=== PATIENT | female | born 1985 | race Two or more races ===

== ENCOUNTER 2023-12-30 11:38 | Emergency (ER) | payer MEDICAID, SELFPAY ==
[2023-12-30 12:06] VITALS: BP 180/83; PULSE 118; RESP 19; TEMP 36.7; O2SAT 100; BMI 33.9
--- NOTE | 2023-12-30 12:20 | XR_ITS ---
Examination: PA lateral chest 2 views TECHNIQUE: Upright PA lateral chest 2 views Exam date and time: December 30, 2023 1248 hours Comparison July 27, 2020 INDICATIONS: Coughing dizziness today. FINDINGS: Normal heart size No pneumonia or pulmonary edema. Intact osseous structures IMPRESSION: No pneumonia or pulmonary edema
--- NOTE | 2023-12-30 12:21 | PD.EDRME ---
Rapid Medical Screening Exam RME Arrival date/time: 12/30/23 11:38 38-year-old female presents to the emergency department stating she has been not feeling well for the last few days Chief Complaint: General Adult/Misc Complain Time Seen by Provider: 12/30/23 11:42 Vital signs: Vital Signs Temperature 98.0 F 12/30/23 12:06 Pulse Rate 118 H 12/30/23 12:06 Respiratory Rate 19 12/30/23 12:06 Blood Pressure 180/83 H 12/30/23 12:06 Pulse Oximetry (%) 100 12/30/23 12:06 Oxygen Delivery Method Room Air 12/30/23 12:06
[2023-12-30 12:59] LABS: Collection Type, Urine Clean Catch; RBC,Urine 0 /hpf (0-3)
[2023-12-30 13:04] LABS: HCG Qualitative,Urine Negative
[2023-12-30 13:12] LABS: Basophils % (Auto) 0 % (0-2.5); Eosinophils # (Auto) 0.1 Thou/mm3 (0.0-0.5); Eosinophils % (Auto) 1 % (0-10); Hematocrit 43.9 % (36.0-46.0); Hemoglobin 14.8 g/dL (12.0-16.0); Immature Granulocytes % (Auto) 0 % (0-0); Immature Granulocytes Auto 0.02 Thou/mm3 (0.00-0.00); Lymphocytes # (Auto) 1.6 Thou/mm3 (1.0-4.8); Lymphocytes % (Auto) 16 % (10-50); Mean Corpuscular HGB Conc 33.7 g/dl (31.0-37.0); Mean Corpuscular Hemoglobin 28.1 pg (25.0-35.0); Mean Corpuscular Volume 83 fL (80-100); Monocytes # (Auto) 0.4 Thou/mm3 (0.0-0.8); Monocytes % (Auto) 4 % (0-12); Neutrophils # (Auto) 7.8 Thou/mm3 (1.8-7.7); Neutrophils % (Auto) 79 % (37-80); Nucleated Red Blood Cell % 0 /100 WBC (0); Platelet Count 425 Thou/mm3 (140-440); RDW Standard Deviation 38.6 fL (36.4-46.3); Red Blood Count 5.27 Miln/mm3 (4.00-5.20); White Blood Count 9.9 Thou/mm3 (3.6-11.0)
[2023-12-30 13:17] LABS: Amphetamine/Methamp Scrn,U Positive (Negative); Barbiturate Screen,Urine Negative (Negative); Benzodiazepines Screen,Urine Negative (Negative); Benzoylecgonine Screen, Ur Negative (Negative); Fentanyl Screen,Urine Negative (Negative); Opiate Screen,Urine Negative (Negative); THC Screen,Urine Negative (Negative)
[2023-12-30 13:21] LABS: Bilirubin,Urine Negative (Negative); Blood,Urine Negative (Negative); Clarity,Urine Clear (Clear/Hazy); Color,Urine Lt-Yellow (Lt Yel-Yel); Culture Indicated,Urine Not Indicated; Glucose, Urine Negative (Negative); Ketones,Urine Negative (Negative); Leukocyte Esterase,Urine Negative (Negative); Nitrite,Urine Negative (Negative); PH,Urine 6.5 (5.0-7.0); Protein,Urine Negative (Neg - Trace); Specific Gravity,Urine 1.015 (1.001-1.035); Squamous Epithelial Cell,Urine 3 /hpf (0-5); Urobilinogen,Urine Negative mg/dL (0.0-1.0); WBC,Urine < 1 /hpf (0-5)
[2023-12-30 13:25] LABS: Alanine Aminotransferase 19 U/L (10-49); Albumin/Globulin Ratio 1.7 (1.2-2.2); Alkaline Phosphatase 84 U/L (46-116); Anion Gap 9 (7-16); Aspartate Amino Transferase 23 U/L (0-34); BUN/Creatinine Ratio 16 Ratio (12-20); Bilirubin,Total 0.5 mg/dL (0.3-1.2); Blood Urea Nitrogen 11 mg/dL (9-23); Calcium 9.7 mg/dL (8.3-10.6); Calcium (Corrected) 9.7 mg/dL (8.5-10.1); Carbon Dioxide 25.2 mMol/L (20.0-31.0); Chloride 102 mMol/L (98-107); Creatinine (Component) 0.7 mg/dL (0.6-1.3); Estimated Creatinine Clearance 96.1 mL/min (>60); Globulin 2.9 gm/dL (2.3-3.5); Glucose 111 mg/dL (74-106); Lipase 42 U/L (12-53); Osmolality,Calculated 272 (275-295); Potassium 4.2 mMol/L (3.4-5.1); Sodium 136 mMol/L (136-145); Total Protein 7.9 gm/dL (5.7-8.2); Troponin I < 0.020 ng/mL (0.0-0.045); eGFR > 60 See Note
--- NOTE | 2023-12-30 14:33 | EDNOTE_ITS ---
ED General RME/HPI General Chief complaint: General Adult/Misc Complain Stated complaint: not feeling well. feels like bp is high Time Seen by Provider: 12/30/23 11:42 Arrival date/time: 12/30/23 11:38 Limitations: no limitations RME / HPI RME / HPI narrative: 12/30/23 11:38 38-year-old female presents to the emergency department stating she has been not feeling well for the last few days 38-year-old female with past medical history of hypertension presents to the ED for evaluation of fatigue and feeling ill x 3 days. She endorses intermittent dizziness and headache since onset of symptoms. She reports that she did not take her hypertension medication this morning at the advice of her [id number]. She denies chest pain, abdominal pain, shortness of breath, cough, visual changes, weakness, numbness. She endorses methamphetamine use prior to arrival to the ED. Endorses known sick contact at home and states that her had similar symptoms several days ago. Onset (ago): day(s) Radiation: non-radiation Consistency: intermittent Relieving factors: none Exacerbating factors: none Associated symptoms: denies other symptoms and headaches Treatments prior to arrival: none Related Data Previous Rx's ?Medication ?Instructions ?Recorded pseudoephedrine HCl 30 mg/5 mL 60 mg (10 mL) PO Q6H PRN sinus 05/03/18 oral liquid (Nasal Decongestant symptoms #118 mL (pseudoephedrine)) loratadine 10 mg tablet 10 mg PO QDAY #30 tabs 04/15/19 ciprofloxacin HCl 500 mg tablet 500 mg PO Q12H #20 tabs 07/28/19 (Cipro) clindamycin HCl 150 mg capsule 450 mg (3 x 150 mg) PO TID #30 caps 11/16/19 ibuprofen 800 mg tablet 800 mg PO TID PRN pain #30 tabs 11/16/19 acetaminophen 500 mg tablet 1,000 mg (2 x 500 mg) PO Q6H PRN 02/16/23 (Tylenol Extra Strength) fever or pain #30 tabs ibuprofen 600 mg tablet 600 mg PO Q6H PRN fever or pain 02/16/23 #30 tabs ondansetron 4 mg disintegrating 4 mg PO Q6H PRN nausea and 02/16/23 tablet vomiting #10 tabs ibuprofen 600 mg tablet 600 mg PO Q8H PRN pain #20 tabs 12/17/23 Allergies Allergy/AdvReac Type Severity Reaction Status Date / Time No Known Allergies Allergy Verified 12/30/23 11:39 Review of Systems Constitutional Constitutional: Denies chills, Denies fever(s), Reports headache(s) and Denies weakness Eyes Eyes: Denies blurry vision and Denies change in vision ENT Ears, Nose, Mouth, and Throat: Reports headache(s), Denies neck pain, Denies sore throat and Denies vertigo Cardiovascular Cardiovascular: Denies chest pain, Denies diaphoresis and Denies dyspnea Respiratory Respiratory: Denies dyspnea and Denies hemoptysis Gastrointestinal Gastrointestinal: Denies change in bowel habits, Denies nausea and Denies vomiting Genitourinary Genitourinary: Denies dysuria Musculoskeletal Musculoskeletal: Denies neck pain, Denies numbness, Denies stiffness and Denies tingling Integumentary/Breasts Skin/Breast: Denies rash and Denies wounds Neurologic Neurologic: Reports headache(s), Denies numbness, Denies tingling, Denies vertigo and Denies weakness Past Medical History Past Medical History CARDIAC: Positive Hypercholesterolemia and Hypertension; Negative Congestive Heart Failure RESPIRATORY: Negative Chronic Obstructive Pulmonary Disease (COPD) GENITOURINARY: Negative Renal Disease ENDOCRINE: Negative Diabetes Mellitus Type 1 or Diabetes Mellitus Type 2 PSYCHO/SOCIAL: Positive Anxiety Surgical History SURGICAL: Positive Abdominal Surgery and Tubal Ligation Social History SMOKING STATUS: Never smoker SUBSTANCE USE: does not use ED Exam General Limitations: Present no limitations General appearance: Present alert and in no apparent distress Head Head exam: Present atraumatic and normocephalic Eye Eye exam: Present PERRL and EOMI ENT ENT exam: Present mucous membranes moist and normal external ear exam Neck Neck exam: Present normal inspection and full ROM Chest Chest inspection: Present normal inspection and symmetric chest wall rise Respiratory Respiratory exam: Absent respiratory distress Cardiovascular Cardiovascular exam: Present regular rate, +S1 and +S2 Abdominal Exam Abdominal exam: Present soft; Absent distention Extremities Exam Extremities exam: Present normal inspection and full ROM Back Exam Back exam: Present normal inspection and full ROM Neurological Exam Neurological exam: Present alert and normal gait Psychiatric Psychiatric exam: Present normal affect Skin Skin exam: Present warm, dry and normal color Course Quality Measures none Orders Category Date Time Status XR chest 2V Stat Exams 12/30/23 12:20 Completed CBC Stat Lab 12/30/23 12:54 Completed Comprehensive Metabolic Panel Stat Lab 12/30/23 12:54 Completed Drug Screen,Urine Stat Lab 12/30/23 12:49 Completed HCG Qualitative,Urine Stat Lab 12/30/23 12:49 Completed Lipase Stat Lab 12/30/23 12:54 Completed Troponin I Stat Lab 12/30/23 12:54 Completed UA, C/S IF [Urinalysis, C/S if Indicated] Stat Lab 12/30/23 12:49 Completed Vital Signs Vital signs: Vital Signs Temperature 98.0 F 12/30/23 12:06 Pulse Rate 118 H 12/30/23 12:06 Respiratory Rate 19 12/30/23 12:06 Blood Pressure 180/83 H 12/30/23 12:06 Pulse Oximetry (%) 100 12/30/23 12:06 Oxygen Delivery Method Room Air 12/30/23 12:06 Pulse ox 100% on room air, within normal limits [facility] Patient data External records reviewed:: [facility] previous records Clinical information provided by:: patient Social determinants that could affect healthcare access:: substance use Patient has the following chronic illnesses:: Substance misuse, hypertension. How is presenting disease/condition affected by chronic disease/condition?: c aused by Evaluation data The following diagnostics were reviewed and interpreted by me:: lab results, radiology exam(s) and EKG tracing(s) Lab and/or radiology exams considered but not ordered:: Workup ordered. Interpretation Summary: Methamphetamine on drug tox, mild hyperglycemia on metabolic panel. No anemia, troponin negative. Medications Medications considered but not ordered:: Considered not ordered. Medication administrations:: Considered not ordered. Consultations Consultation(s) initiated? (list below): No Diagnosis Differential Diagnosis ED Complaint MDM: Viral illness, ACS, sepsis, hypertensive emergency, methamphetamine use. Most likely diagnosis given after review of the tests above:: Methamphetamine use, viral illness. Admission Indicated Admission indicated?: not indicated Explain why admission is indicated or not indicated:: Patient symptoms improved upon reevaluation. Hypertension likely due to missed medication, which we advised the patient to take her medication as prescribed. Tachycardia likely related to methamphetamine use. Patient nontoxic-appearing and stable at time of discharge. Admission Request Was there a request for admission?: No Disposition Plan Disposition Plan: Discharge Discharge Attestation Discharge Attestation: The patient and all family members were given an opportunity to ask questions and understood the discharge instructions. Discharge instructions specifically effects, indications for sooner follow up or return to the emergency department, and the expected course of current diagnosis. Patient condition: Stable Medical Decision Making MDM Narrative MDM Narrative: 38-year-old female with hypertension presented with generalized feeling of illness. Patient tachycardic and hypertensive in the department. Patient endorsed not taking her hypertension medication today, which I stressed that she needs to continue to take as prescribed. ACS workup today was fortunately negative with no gross electrolyte abnormalities or evidence of endorgan damage. Patient not anemic. Tachycardia likely related to methamphetamine use. Upon reevaluation patient reported that her symptoms were improved. I stressed that she needs to continue to take her hypertension medication as prescribed and follow-up with primary care within a week. I told her to return to the ED should her symptoms worsen or change. Patient was agreeable with this plan and stable at time of discharge Differential Diagnosis Differential Diagnosis: Viral illness, ACS, sepsis, hypertensive emergency, methamphetamine use. Lab Data 12/30/23 12:54 12/30/23 12:54 Labs: Lab Results 12/30/23 12/30/23 Range/Units 12:49 12:54 WBC 9.9 (3.6-11.0) Thou/mm3 RBC 5.27 H (4.00-5.20) Miln/mm3 Hgb 14.8 (12.0-16.0) g/dL Hct 43.9 (36.0-46.0) % MCV 83 (80-100) fL MCH 28.1 (25.0-35.0) pg MCHC 33.7 (31.0-37.0) g/dl RDW Std Deviation 38.6 (36.4-46.3) fL Plt Count 425 (140-440) Thou/mm3 Neut % (Auto) 79 (37-80) % Lymph % (Auto) 16 (10-50) % [place] % (Auto) 4 (0-12) % Eos % (Auto) 1 (0-10) % Baso % (Auto) 0 (0-2.5) % Neut # (Auto) 7.8 H (1.8-7.7) Thou/mm3 Lymph # (Auto) 1.6 (1.0-4.8) Thou/mm3 [place] # (Auto) 0.4 (0.0-0.8) Thou/mm3 Eos # (Auto) 0.1 (0.0-0.5) Thou/mm3 Baso # (Auto) 0.0 (0.0-0.2) Thou/mm3 Immature Gran # (Auto) 0.02 H (0.00-0.00) Thou/mm3 Absolute Nucleated RBC 0.00 (0.00-0.00) Thou/mm3 Immature Gran % 0 (0-0) % Nucleated RBC % 0 (0) /100 WBC Sodium 136 (136-145) mMol/L Potassium 4.2 (3.4-5.1) mMol/L Chloride 102 (98-107) mMol/L Carbon Dioxide 25.2 (20.0-31.0) mMol/L Anion Gap 9 (7-16) BUN 11 (9-23) mg/dL Creatinine 0.7 (0.6-1.3) mg/dL Estim Creat Clear Calc 96.1 (>60) mL/min eGFR > 60 (60 - ) See Note BUN/Creatinine Ratio 16 (12-20) Ratio Glucose 111 H (74-106) mg/dL Calculated Osmolality 272 L (275-295) Calcium 9.7 (8.3-10.6) mg/dL Corrected Calcium 9.7 (8.5-10.1) mg/dL Total Bilirubin 0.5 (0.3-1.2) mg/dL AST 23 (0-34) U/L ALT 19 (10-49) U/L Alkaline Phosphatase 84 (46-116) U/L Troponin I < 0.020 (0.0-0.045) ng/mL Total Protein 7.9 (5.7-8.2) gm/dL Albumin 5.0 (3.5-5.0) gm/dL Globulin 2.9 (2.3-3.5) gm/dL Albumin/Globulin Ratio 1.7 (1.2-2.2) Lipase 42 (12-53) U/L Ur Collection Type Clean Catch Urine Color Lt-Yellow (Lt Yel-Yel) Urine Clarity Clear (Clear/Hazy) Urine pH 6.5 (5.0-7.0) Ur Specific [place] 1.015 (1.001-1.035) Urine Protein Negative (Neg - Trace) Urine Glucose (UA) Negative (Negative) Urine Ketones Negative (Negative) Urine Blood Negative (Negative) Urine Nitrite Negative (Negative) Urine Bilirubin Negative (Negative) Urine Urobilinogen (Auto) Negative (0.0-1.0) mg/dL Ur Leukocyte Esterase Negative (Negative) Urine RBC 0 (0-3) /hpf Urine WBC < 1 (0-5) /hpf Ur Squamous Epith Cells 3 (0-5) /hpf Urine Bacteria None (None) Ur Culture Indicated? Not Indicated Urine HCG, Qual Negative Urine Opiates Screen Negative (Negative) Urine Fentanyl Screen Negative (Negative) Ur Barbiturates Screen Negative (Negative) U Amphetamin/Meth Scrn Positive A (Negative) U Benzodiazepines Scrn Negative (Negative) U Cocaine Metab Screen Negative (Negative) U Marijuana (THC) Screen Negative (Negative) Discharge Plan Plan Patient Disposition: HOME (Self Care) Disposition Comment: stable Prescriptions/Referrals Prescriptions/Med Rec: No Action ciprofloxacin HCl [Cipro] 500 mg tablet 500 mg PO Q12H Qty: 20 0RF Rx Instructions: administer dose 2 hrs before/6 hrs after dairy products/calcium/zinc/iron- containing products pseudoephedrine HCl [Nasal Decongestant (pseudoeph)] 30 mg/5 mL liquid 60 mg PO Q6H PRN (Reason: sinus symptoms) Qty: 118 0RF loratadine 10 mg tablet 10 mg PO QDAY Qty: 30 0RF ibuprofen 800 mg tablet 800 mg PO TID PRN (Reason: pain) Qty: 30 0RF clindamycin HCl 150 mg capsule 450 mg PO TID Qty: 30 0RF ondansetron 4 mg tablet,disintegrating 4 mg PO Q6H PRN (Reason: nausea and vomiting) Qty: 10 0RF ibuprofen 600 mg tablet 600 mg PO Q6H PRN (Reason: fever or pain) Qty: 30 0RF acetaminophen [Tylenol Extra Strength] 500 mg tablet 1,000 mg PO Q6H PRN (Reason: fever or pain) Qty: 30 0RF ibuprofen 600 mg tablet 600 mg PO Q8H PRN (Reason: pain) Qty: 20 0RF Referrals: Elmer Gaitan MD [Primary Care Provider] - In 1 week Problem List Clinical Impression: Methamphetamine use, Viral infection Patient/Caregiver Discharge Instructions Other Activity Instructions:: Continue to take hypertension medication as prescribed. Rest and hydrate well and plan to follow-up with primary care within the week. Return to the ED if your symptoms worsen or change. Education Materials: Taking a Diuretic, ED Viral Syndrome (Adult) Print Language: Venezuelan Stand Alone Forms: Ju Award Info., Patient Portal Info Letter MD Attestation Attestation The patient was seen by the midlevel practitioner. I, the co-signing physician, was present during the entire ER visit. While I did not physically examine the patient, I was available for consultation as needed.
== END 2023-12-30 14:55 | disposition home or self-care (01) ==
PROVIDERS: Nurse Practitioner Primary Care; Emergency Provider Emergency Medicine; PCP Family Medicine
DX: B34.9 Viral infection, unspecified (principal); F15.90 Other stimulant use, unspecified, uncomplicated; R42 Dizziness and giddiness
CPT/HCPCS: 36415; 71046; 80053; 80307; 81001; 81025; 83690; 84484; 85025; 99283

== ENCOUNTER 2024-12-26 12:35 | Emergency (ER) | payer MEDICAID, SELFPAY ==
[2024-12-26 13:05] VITALS: BP 155/105; BP 166/114; PULSE 87; RESP 18; TEMP 36.7; O2SAT 98; BMI 31.2
--- NOTE | 2024-12-26 13:18 | XR_ITS ---
Examination: Abdomen sonogram, Limited Date and time of exam: December 26, 2024, 1350 hours INDICATIONS: Right upper abdominal pain beginning 3 days ago Technique: Real-time ordoñez scale transabdominal sonographic images of the upper abdomen obtained. Findings: Contracted gallbladder Gallbladder wall 0.4 cm No stones noted Pancreatic 8.2 cm Pancreatic head 3.2 cm Liver 14.5 cm Minimal fatty infiltration no focal liver lesions Normal hepatopetal portal venous flow Patent IVC IMPRESSION: Repeat the gallbladder portion of the study with fasting
--- NOTE | 2024-12-26 13:21 | EDNOTE_ITS ---
Upper Respiratory Inf. RME/HPI General Chief Complaint: Flu Like Symptoms Stated Complaint: DIZZINESS, ABD PAIN FEVER, SOB SINCE YESTERDAY Time Seen by Provider: 12/26/24 12:43 Arrival date/time: 12/26/24 12:35 39-year-old female patient with a history of occasional alcohol drinking, came in for evaluation regarding right upper quadrant pain been having right upper quadrant pain on and off for the last few days, associated with nausea denies any vomiting no fever no diarrhea no constipation. Patient is wor ried about his liver since last visit with PCP was advised that his LFTs are elevated. Patient is coming here asking for laboratory workup especially on her liver function test. Related Data Previous Rx's ?Medication ?Instructions ?Recorded pseudoephedrine HCl 30 mg/5 mL 60 mg (10 mL) PO Q6H CT N sinus 05/03/18 oral liquid (Nasal Decongestant symptoms #118 mL (pseudoephedrine)) loratadine 10 mg tablet 10 mg PO QDAY #30 tabs 04/14 ciprofloxacin HCl 500 mg tablet 500 mg PO Q12H #20 tab s 07/28/19 (Cipro) clindamycin HCl 150 mg capsule 450 mg (3 x 150 mg) PO TID #30 caps 11/16/19 ibuprofen 800 mg tablet 800 mg PO TID PRN pain #30 t abs 11/16/19 acetaminophen 500 mg tablet 1,000 mg (2 x 500 mg) PO Q 6H PRN 02/16/23 (Tylenol Extra Strength) fever or pain #30 tabs ibuprofen 600 mg tablet 600 mg PO Q6H PRN fever or p ain 02/16/23 #30 tabs ondansetron 4 mg disintegrating 4 mg PO Q6H PRN nausea and 02/16/23 tablet vomiting #10 tabs ibuprofen 600 mg tablet 600 mg PO Q8H PRN pain #20 t abs 12/17/23 famotidine 40 mg tablet (Pepcid) 40 mg PO BID #20 tabs 12/26/24 Allergies Allergy/AdvReac Type Severity Reaction Status Date / Time No Known Allergies Allergy Verified 12/26/24 12:38 Review of Systems Review of Systems Narrative Review of Systems: Review of system reviewed and within normal limits except mentioned in HPI ED Exam Narrative Physical exam: VITAL SIGNS: Reviewed. GENERAL APPEARANCE: Alert and interactive, follows commands, no acute distress, HEAD AND FACE: Non-traumatic. ENT: PERRL, pink conjunctivitis, eyelid no trauma, Mucous membrane moist. NECK: Supple, nontender, no nuchal rigidity. CHEST: No tenderness, no crepitus, no paradoxical movement, no retractions. LUNGS: Clear, well ventilated, symmetric, no rales, no wheezing, no ronchi, no stridor, good breath sounds bilaterally. HEART: Regular rate, regular rhythm, no murmur, no gallops. ABDOMEN: Soft, positive bowel sounds, nondistended, no guarding, right upper quadrant tenderness, no rebound, no masses, RECTAL: Deferred. GENITAL: Deferred. NEUROLOGICAL: Gross motor function intact sensory function intact, Appropriate for age. MUSCULOSKELETAL: low back nontender, full range of motion. EXTREMITIES: Nontender, full range of motion. SKIN: Color pink, dry, no rash, no lacerations, no abrasions, no contusions. LYMPHATICS: Deferred. Course Quality Measures none Orders Category Date Time Status US gall bladder Stat Exams 12/26/24 13:18 Completed CBC Stat Lab 12/26/24 13:31 Completed Comprehensive Metabolic Panel Stat Lab 12/26/24 13:31 Completed Lipase Stat Lab 12/26/24 13:31 Completed Prothrombin Time with INR Stat Lab 12/26/24 13:31 Completed UA, C/S IF [Urinalysis, C/S if Indicated] Stat Lab 12/26/24 13:20 Completed mg Hyd/Al Hyd/Lilibeth Susp [Maalox Susp] Med 12/26/24 13:18 Discontinued 30 ml PO X1 ONE Vital Signs Vital signs: Vital Signs Temperature 98.1 F 12/26/24 13:05 Pulse Rate 87 12/26/24 13:05 Respiratory Rate 18 12/26/24 13:05 Blood Pressure 166/114 H 12/26/24 13:05 Pulse Oximetry (%) 98 12/26/24 13:05 Oxygen Delivery Method Room Air 12/26/24 13:05 Upper Respiratory Infection MDM Narrative MDM Narrative:: 39-year-old female patient with a history of occasional alcohol drinking, came in for evaluation regarding right upper quadrant pain been having right upper quadrant pain on and off for the last few days, associated with nausea denies any vomiting no fever no diarrhea no constipation. Patient is worried about his liver since last visit with PCP was advised that his LFTs are elevated. Patient is coming here asking for laboratory workup especially on her liver function test. Patient liver function test all came back normal the rest of the labs unremarkable ultrasound of the gallbladder showed mild fatty liver otherwise unremarkable. Results discussed with the patient. Patient was advised to stop drinking alcohol and avoid eating fried greasy food. Patient agrees with the plan I will send this patient home on gastritis medication. Patient data External records reviewed:: None Clinical information provided by:: patient Social determinants that could affect healthcare access:: alcohol use Patient has the following chronic illnesses:: None How is presenting disease/condition affected by chronic disease/condition?: no chronic disease Evaluation data The following diagnostics were reviewed and interpreted by me:: lab results and radiology exam(s) Lab and/or radiology exams considered but not ordered:: None see above Interpretation Summary: See above Medications / Prescriptions Medications or Prescriptions considered but not ordered:: None Medication administrations:: Medication Administration History Discontinued Medications Al Hydrox/Mg Hydrox/Simethicone (Mg Hyd/Al Hyd/Lilibeth (Maalox Reg) Susp 30 Ml Udc) 30 ml PO X1 ONE Stop: 12/26/24 13:19 Last Admin: 12/26/24 13:43 Dose: 30 ml Documented By: Maalox Consultations Consultation(s) initiated? (list below): No Diagnosis Upper Respiratory Differential Diagnosis: other (Gastritis, heartburn, fatty liver, biliary colic gallstone) Most likely diagnosis given after review of the tests above:: Fatty liver, heart burn Admission Indicated Admission indicated?: not indicated Admission Request Was there a request for admission?: No Disposition Plan Disposition Plan: Discharge Discharge Attestation Discharge Attestation: The patient was given an opportunity to ask questions and understood the discharge instructions. Discharge instructions specifically effects, indications for sooner follow up or return to the emergency department, and the expected course of current diagnosis. Patient condition: Stable Discharge Plan Plan Patient Disposition: HOME (Self Care) Discharge Disposition comment: Stable Prescriptions/Referrals Prescriptions/Med Rec: New famotidine [Pepcid] 40 mg tablet 40 mg PO BID Qty: 20 0RF No Action ciprofloxacin HCl [Cipro] 500 mg tablet 500 mg PO Q12H Qty: 20 0RF Rx Instructions: administer dose 2 hrs before/6 hrs after dairy products/calcium/zinc/iron- containing products pseudoephedrine HCl [Nasal Decongestant (pseudoeph)] 30 mg/5 mL liquid 60 mg PO Q6H PRN (Reason: sinus symptoms) Qty: 118 0RF loratadine 10 mg tablet 10 mg PO QDAY Qty: 30 0RF ibuprofen 800 mg tablet 800 mg PO TID PRN (Reason: pain) Qty: 30 0RF clindamycin HCl 150 mg capsule 450 mg PO TID Qty: 30 0RF ondansetron 4 mg tablet,disintegrating 4 mg PO Q6H PRN (Reason: nausea and vomiting) Qty: 10 0RF ibuprofen 600 mg tablet 600 mg PO Q6H PRN (Reason: fever or pain) Qty: 30 0RF acetaminophen [Tylenol Extra Strength] 500 mg tablet 1,000 mg PO Q6H PRN (Reason: fever or pain) Qty: 30 0RF ibuprofen 600 mg tablet 600 mg PO Q8H PRN (Reason: pain) Qty: 20 0RF Problem List Clinical Impression: Heartburn, Fatty liver Patient/Caregiver Discharge Instructions Discharge Activity: activity as tolerated Education Materials: ED Gastritis (Adult) Additional Instructions: Thank you for the opportunity for serving you today. You are stable for discharged . You are advised to: Follow-up with your PCP in 1 to 2 days Return to ED for worsening of symptoms Increase oral fluids Take medication as prescribed Please avoid eating fried, greasy, fried food Please avoid drinking alcohol it will worsen your fatty liver Print Language: Portuguese Stand Alone Forms: Ju Award Info., Patient Portal Info Letter KASHMIR/MOLINA Supervising Physician KASHMIR/MOLINA Supervising Physician: MD Ivy
[2024-12-26 13:43] LABS: Collection Type, Urine Clean Catch
[2024-12-26] MEDS: MG HYD/AL HYD/SIME (Maalox Reg) SUSP 30 ML UDC PO (13:43)
[2024-12-26 13:58] LABS: Basophils # (Auto) 0.0 Thou/mm3 (0.0-0.2); Basophils % (Auto) 1 % (0-2.5); Eosinophils # (Auto) 0.1 Thou/mm3 (0.0-0.5); Eosinophils % (Auto) 2 % (0-10); Hematocrit 36.8 % (36.0-46.0); Hemoglobin 11.8 g/dL (12.0-16.0); Immature Granulocytes Auto 0.01 Thou/mm3 (0.00-0.00); Lymphocytes # (Auto) 1.9 Thou/mm3 (1.0-4.8); Lymphocytes % (Auto) 35 % (10-50); Mean Corpuscular HGB Conc 32.1 g/dl (31.0-37.0); Mean Corpuscular Hemoglobin 25.8 pg (25.0-35.0); Mean Corpuscular Volume 80 fL (80-100); Monocytes # (Auto) 0.5 Thou/mm3 (0.0-0.8); Monocytes % (Auto) 8 % (0-12); Neutrophils # (Auto) 2.9 Thou/mm3 (1.8-7.7); Neutrophils % (Auto) 54 % (37-80); Nucleated Red Blood Cell # 0.00 Thou/mm3 (0.00-0.00); Nucleated Red Blood Cell % 0 /100 WBC (0); Platelet Count 393 Thou/mm3 (140-440); RDW Standard Deviation 44.4 fL (36.4-46.3); Red Blood Count 4.58 Miln/mm3 (4.00-5.20); White Blood Count 5.4 Thou/mm3 (3.6-11.0)
[2024-12-26 14:01] LABS: Bilirubin,Urine Negative (Negative); Blood,Urine Negative (Negative); Clarity,Urine Clear (Clear/Hazy); Color,Urine Lt-Yellow (Lt Yel-Yel); Culture Indicated,Urine Not Indicated; Glucose, Urine Negative (Negative); Ketones,Urine Negative (Negative); Leukocyte Esterase,Urine Negative (Negative); Nitrite,Urine Negative (Negative); PH,Urine 7.0 (5.0-7.0); Protein,Urine Negative (Neg - Trace); RBC,Urine 1 /hpf (0-3); Specific Gravity,Urine 1.021 (1.001-1.035); Squamous Epithelial Cell,Urine 9 /hpf (0-5); Urobilinogen,Urine Negative mg/dL (0.0-1.0); WBC,Urine 1 /hpf (0-5)
[2024-12-26 14:03] LABS: INR 1.0 (0.9-1.3); Prothrombin Time 10.3 Seconds (9.0-12.2)
[2024-12-26 14:10] LABS: Alanine Aminotransferase 12 U/L (10-49); Albumin, Serum 4.6 gm/dL (3.5-5.0); Albumin/Globulin Ratio 2.4 (1.2-2.2); Alkaline Phosphatase 73 U/L (46-116); Anion Gap 11 (7-16); Aspartate Amino Transferase 17 U/L (0-34); BUN/Creatinine Ratio 14 Ratio (12-20); Bilirubin,Total 0.3 mg/dL (0.3-1.2); Blood Urea Nitrogen 10 mg/dL (9-23); Calcium 8.8 mg/dL (8.3-10.6); Calcium (Corrected) 8.8 mg/dL (8.5-10.1); Carbon Dioxide 26.4 mMol/L (20.0-31.0); Chloride 105 mMol/L (98-107); Creatinine (Component) 0.7 mg/dL (0.6-1.3); Estimated Creatinine Clearance 95.0 mL/min (>60); Globulin 1.9 gm/dL (2.3-3.5); Glucose 94 mg/dL (74-106); Lipase 52 U/L (12-53); Osmolality,Calculated 282 (275-295); Potassium 3.9 mMol/L (3.4-5.1); Sodium 142 mMol/L (136-145); Total Protein 6.5 gm/dL (5.7-8.2); eGFR > 60 See Note
== END 2024-12-26 15:50 | disposition home or self-care (01) ==
PROVIDERS: Nurse Practitioner Family; Emergency Provider Family Medicine
DX: K76.0 Fatty (change of) liver, not elsewhere classified (principal); R12 Heartburn
CPT/HCPCS: 36415; 76705; 80053; 81001; 83690; 85025; 85610; 99283; A9270